=== PATIENT | male | born 1990 | race Caucasian/White ===

== ENCOUNTER 2016-07-28 00:47 | Emergency (ER) | payer SELFPAY ==
[~2016-07-28] VITALS: Ht 177.8 cm; Wt 58.0 kg
[2016-07-28 00:49] VITALS: BP 134/88; PULSE 74; RESP 16; TEMP 98.6; O2SAT 98
[2016-07-28] MEDS ORDERED: PRED-503 PO (01:43)
[2016-07-28] MEDS ORDERED: MOME17I EACH NARE (01:43)
[2016-07-28] MEDS ORDERED: HYDR-3533 PO (01:43)
[2016-07-28] MEDS ORDERED: ACETAMINOPHEN/HYDROcodone 325 MG/5 MG TAB PO ONE (01:45)
[2016-07-28] MEDS ORDERED: predniSONE 20 MG TAB PO ONE (01:45)
--- NOTE | 2016-07-28 01:53 | PD ---
HPI Chief Complaint: ENT Complaint Time Seen by Provider: 01:49 Travel History International Travel<30 days: No Contact w/Intl Traveler<30days: No Traveled to known affect area: No History of Present Illness HPI 25-year-old white male presents to emergency Department with complaints of severe right pain this evening. He states that he has a history of seasonal allergies. He states also that he has been working at a [employer] which had mold. He has noted increasing nasal congestion, sore throat and general malaise every day that he goes to work. He states that he had just gotten leave in the last day or so and is on vacation going to the [place]. He' s been sneezing, coughing and taking Sudafed. This evening he developed sudden severe pain in his right ear. He has had muffled sounds as if there is fluid in his ear. He feels like he is on a plane. No alleviating factors. No drainage. PFSH Past Medical History Narrative Medical Seasonal allergies, allergic rhinitis Tetanus Vaccination: < 5 Years Past Surgical History Surgical History: No Previous Surgery Social History Alcohol Use: No Tobacco Use: No Substance Use: No Allergies-Medications (Allergen,Severity, Reaction): Coded Allergies: No Known Allergies (Unverified , 07/28/16) Reported Meds & Prescriptions Reported Meds & Active Scripts Active Lortab (Hydrocodone-Acetaminophen) 5-325 Mg Tab 1 Tab PO Q4H PRN Nasonex Nasal [place] (Mometasone Furoate) 50 Mcg/Act Naspr 2 [place] EACH NARE DAILY Deltasone (Prednisone) 20 Mg Tab 20 Mg PO TID Review of Systems Except as stated in HPI: all other systems reviewed are Neg Physical Exam Narrative GENERAL: Well-developed, well-nourished in no acute distress. Nontoxic appearing. HEAD: Normocephalic, atraumatic. EYES: Pupils equal round and reactive. Extraocular motions intact. No scleral icterus. No injection or drainage. ENT: The right external auditory canals is clear. The right TM is distended but there is no erythema. No purulent pus or air-fluid level. The left external auditory canal clear. The left TM is clear. Nose: clear . Positive edema of the turbinates. Posterior pharynx is pink and moist. No tonsillar edema or exudate. Uvula midline. Airway patent. NECK: Trachea midline.Supple, nontender, moves head freely. No central bony tenderness or spasm. CARDIOVASCULAR: Regular rate and rhythm without murmurs, gallops, or rubs. RESPIRATORY: Clear to auscultation. Breath sounds equal bilaterally. No wheezes , rales, or rhonchi. GASTROINTESTINAL: Abdomen soft, non-tender, nondistended. No hepato-splenomegaly , or palpable masses. No guarding. EXTREMITIES: No clubbing, cyanosis, or edema. No joint tenderness, effusion, or edema noted. BACK: Nontender without deformity or crepitance. No flank tenderness. Data Data Last Documented VS Vital Signs Date Time Temp Pulse Resp B/P Pulse Ox O2 Delivery O2 Flow Rate FiO2 07/28/16 00:49 98.6 74 16 134/88 98 Room Air Orders Acetamin-Hydrocod 325-5 Mg ([place] 5-325 (07/28/16 01:45) Prednisone (Deltasone) (07/28/16 01:45) MDM Medical Decision Making Medical Screen Exam Complete: Yes Emergency Medical Condition: Yes Medical Record Reviewed: Yes Differential Diagnosis Differential diagnoses: Otitis media, serous otitis media, eustachian tube dysfunction, mastoiditis Narrative Course Patient's given prednisone 40 mg by mouth, Lortab 5 g by mouth. This is right serous otitis media, right eustachian tube dysfunction Diagnosis Primary Impression: Right serous otitis media Additional Impression: Dysfunction of right eustachian tube Patient Instructions: General Instructions, Narcotic given in the ED Additional Instructions: Rest. Increase fluids. Continue Sudafed. Nasal steroid. Oral prednisone and Lortab for pain. CHEW gum. Follow-up with a medical doctor or ENT in 1 week. Med/Other Pt SpecificInfo: Prescription(s) given Scripts Hydrocodone-Acetaminophen (Lortab)5-325 Mg Tab1 Tab PO Q4H PRN (PAIN) #12 TAB Prov:Jay Tilley MD 07/28/16 Mometasone Nasal [place] (Nasonex Nasal [place])50 Mcg/Act Naspr2 [place] EACH NARE DAILY #1 BOTTLE Prov:Jay Tilley MD 07/28/16 Prednisone (Deltasone)20 Mg Tab20 Mg PO TID #15 TAB Prov:Jay Tilley MD 07/28/16 Disposition: 01 DISCHARGE HOME Condition: Stable [place] [facility] Jul 28, 2016 01:53
== END 2016-07-28 04:04 | disposition home or self-care (01) ==
LOC: NEPD 01:00
DX: H65.91 Unspecified nonsuppurative otitis media, right ear (principal); H69.81 Other specified disorders of Eustachian tube, right ear
CPT/HCPCS: 99284; J7512